=== PATIENT | female | born 1985 | race Two or more races ===

== ENCOUNTER 2025-03-31 00:02 | Emergency (ER) | payer MEDICAID, SELFPAY ==
[2025-03-31 00:03] VITALS: BP 109/52; PULSE 55; RESP 15; TEMP 36.6; O2SAT 93
[2025-03-31 00:04] VITALS: PULSE 51; O2SAT 99; BMI 29.7
--- NOTE | 2025-03-31 00:10 | EDNOTE_ITS ---
ED Chest Pain RME/HPI General Chief Complaint: Chest Pain Stated Complaint: CHEST PAIN Time Seen by Provider: 03/31/25 00:26 Arrival date/time: 03/31/25 00:02 RME / HPI RME / HPI narrative: This section includes all my notes and documentations, including HPI, PE, and ED course. Bala Estrada MD HPI: 39yo female with no significant past medical history BIBA here with multiple concerns, difficult to pinpoint. Including headache and dizziness chest pain and abdominal pain and shortness of breath weakness and nausea and diaphoresis. When asked the main problem she wants help with, she reports chest pain. No fever. EMS noted heart rate in 50s and SBP < 100. No speech or visual impairment. No asymmetrical loss of power in the arms or legs. No numbness or tingling. No other complaints. ROS: All negative except as documented in HPI. Physical Exam: General:? Alert and oriented.? Appears severely anxious. Eyes:? Conjunctivae and lids clear.? EOMI.? PERRL. ENT:? No nasal congestion.? Neck:? Supple.? No carotid bruit.? No JVD.?? Heart:? RRR.? Lungs:? No respiratory distress.? Good air movement with rales.?? Chest:? No tenderness. Abdomen:? Soft with epigastric tenderness.? Normal bowel sounds.? No distension.? No rebound or guarding.?? Back:? No CVA tenderness.?? Legs:? No clubbing, cyanosis, edema.? Skin:? Warm and dry.?? Neuro:? Alert and oriented X 3.? Cranial Nerves II-XII grossly intact.? No peripheral motor deficits. I reviewed EMS notes. I reviewed all diagnostic test results. My interpretation of the EKG is NSR with nonspecific ST-T changes. My interpretation of the chest x-ray is infiltrates. My review of the US gallbladder report is NAD. My review of the CT head report is unremarkable. My review of the CT chest abdomen pelvis is infiltrates in bilateral lungs. Blood and urine tests remarkable for WBC 16.4, Lactic Acid 2.8, and negative troponin/D-dimer/BNP. At this point, diagnoses include pneumonia. Treatment here included Azithromycin, Rocephin, Aspirin, NS, Toradol, Morphine, and Zofran. Significant improvement noted. Recommend outpatient management. Based on my best medical judgment, made decision no further evaluation or treatment indicated at this time. Patient understands and agrees to the discharge instructions customized and printed, see below. Discharge instructions from Dr. Estrada: --After extensive evaluation, there is no life-threatening condition.? Such as stroke or brain tumor or heart attack or pulmonary embolism (blood clots in your lungs) or pneumothorax (collapsed lung). --You have pneumonia. --No physical exertion for 3 days to help rest the lungs. ?No smoking or exposure to smoking or pets or dust or cold or humidity. --Zithromax and cefdinir to kill the germs causing the pneumonia. --Albuterol 2 puffs every 4-6 hours as needed for cough or shortness of breath. --Tylenol with codeine for severe pain or severe cough. --See a private doctor 04/02/2025 for recheck and further care. Ask to review all test results and official radiology reports, to make sure you receive all necessary follow-ups and monitoring. Ask for help until you are completely better. To make sure there is no serious underlying heart condition, ask to help you get more tests for your heart that cannot be done here in the ER. Such as Holter Monitor (cardiac monitoring at home from a day to even a month), heart stress test (on treadmill or with medication), echocardiogram (imaging of your heart structures), heart catherization (checking for blockages in your heart arteries), and a referral to see a Marriage Therapist. --Seek immediate medical care with worsening or with any concerns. Bala Estrada MD Related Data Home Medications ?Medication ?Instructions ?Recorded ?Confirmed omeprazole 20 mg capsule,delayed 20 mg PO QDAY 8 08/26/18 release Previous Rx's ?Medication ?Instructions ?Recorded hydrocodone 5 mg-acetaminophen 325 2 tab PO Q8HR PRN p ain #10 tabs 08/26/18 mg tablet ([place]) acetaminophen 300 mg-codeine 30 mg 2 tab PO Q8H PRN pa in #20 tabs 03/31/25 tablet albuterol sulfate 90 mcg/actuation 2 puff inhalation Q 6H PRN 03/31/25 aerosol inhaler shortness of breath or wheez ing #8.5 grams azithromycin 500 mg tablet 500 mg PO QDAY 3 days #3 ta bs 03/31/25 (Zithromax TRI-FLAKITO) cefdinir 300 mg capsule 300 mg PO BID #14 caps 03/31 Allergies Allergy/AdvReac Type Severity Reaction Status Date / Time shrimp Allergy Intermediate Hives Verified 03/31/25 00:32 Review of Systems Review of Systems Systems Reviewed: All systems reviewed, normal except as documented Past Medical History Past Medical History NEUROLOGIC: Negative Neurological Disorders or Seizures CARDIAC: Negative Cardiac Disorders or Congestive Heart Failure RESPIRATORY: Negative Chronic Obstructive Pulmonary Disease (COPD) or Asthma GASTROINTESTINAL: Positive Gall Bladder Disease; Negative Gastrointestinal Disorders GENITOURINARY: Negative Genitourinary Disorders or Renal Disease REPRODUCTIVE: Positive Previous Pregnancies MUSCULOSKELETAL: Negative Musculoskeletal Disorders ENDOCRINE: Negative Endocrine Disorders, Diabetes Mellitus Type 1 or Diabetes Mellitus Type 2 HEMATOLOGIC: Negative Blood Disorders or Sickle Cell Disease OTHER HISTORY: Positive Hospitalization (childbirth); Negative Autoimmune Disease, Blood Transfusions, Blood Transfusion Reaction or Anesthesia Reactions Family History FAMILY HISTORY: Positive Family Cancer (Aunts-breast cancer); Negative Family Psychiatric Problems, Family Respiratory Disorders, Family Cardiac Disorders (father-HTN), Family Gastrointestinal Problems, Family Surgery or Family Anesthesia Reaction Surgical History SURGICAL: Positive Section Social History SMOKING STATUS: Never smoker SECOND HAND EXPOSURE: No ED Exam Narrative Physical exam: As noted in HPI. Course Course Course Narrative: CXR is ordered for determining the etiology of chest pain. Quality Measures none Orders Category Date Time Status Bedside COVID-19 Antigen Test NOW Care 03/31/25 00:11 Completed Bedside Influenza A&B Antigen Test NOW Care 03/31/25 00:[address] Screening NOW Care 03/31/25 00:14 Completed EKG (ED ONLY) *Do not use* NOW Care 03/31/25 00:14 Completed Saline [Insert IV] NOW Care 03/31/25 00:11 Completed Straight [In and Out Catheter] X1 Care 03/31/25 00:[address] chest abdomen pelvis wo Stat Exams 03/31/25 01:[address] head/brain wo con Stat Exams 03/31/25 00:14 Taken EKG (ED Only) Stat Exams 03/31/25 00:14 Ordered US gall bladder Stat Exams 03/31/25 00:14 Taken XR chest 1V portable Stat Exams 03/31/25 00:14 Taken Alcohol, Blood Medical Stat Lab 03/31/25 00:25 Completed Amylase Stat Lab 03/31/25 00:25 Completed BNP [B-Type Natriuretic Peptide] Stat Lab 03/31/25 00:25 Completed Beta Hydroxybutyrate Stat Lab 03/31/25 00:25 Completed Bilirubin,Direct Stat Lab 03/31/25 00:25 Completed Blood Culture (Lab) Stat Lab 03/31/25 00:20 Received CBC Stat Lab 03/31/25 00:25 Completed CK [Creatine Kinase] Stat Lab 03/31/25 00:25 Completed CMP [Comprehensive Metabolic Panel] Stat Lab 03/31/25 00:25 Completed CRP [C-Reactive Protein] Stat Lab 03/31/25 00:25 Completed D-Dimer Stat Lab 03/31/25 00:25 Completed Drug Screen,Urine Stat Lab 03/31/25 00:25 Completed ESR [Sed Rate (ESR)] Stat Lab 03/31/25 00:25 Completed Free T4 (Free Thyroxine) Stat Lab 03/31/25 00:25 Completed HCG Qualitative,Urine Stat Lab 03/31/25 00:25 Completed HCG,Qualitative Serum Stat Lab 03/31/25 00:25 Completed Lactate (Lactic Acid) Stat Lab 03/31/25 00:25 Completed Lactic Acid, 3 HR Stat Lab 03/31/25 03:40 Completed Lipase Stat Lab 03/31/25 00:25 Completed Magnesium Stat Lab 03/31/25 00:25 Completed PT [Prothrombin Time with INR] Stat Lab 03/31/25 00:25 Completed PTT [Partial Thromboplastin Time] Stat Lab 03/31/25 00:25 Completed Path Review Blood Smear Stat Lab 03/31/25 00:25 Completed Procalcitonin Stat Lab 03/31/25 00:25 Completed TSH [Thyroid Stimulating Hormone] Stat Lab 03/31/25 00:25 Completed Troponin I Stat Lab 03/31/25 00:25 Completed UA, C/S IF [Urinalysis, C/S if Indicated] Stat Lab 03/31/25 00:25 Completed VBG [Venous Blood Gas] Stat Lab 03/31/25 00:25 Completed Aspirin Chew Med 03/31/25 00:11 Discontinued 324 mg PO X1 ONE Azithromycin Po [Zithromax PO] Med 03/31/25 03:02 Discontinued 500 mg PO X1 ONE Ketorolac Inj [Toradol Inj] Med 03/31/25 00:11 Discontinued 30 mg IVP X1 ONE Morphine Inj Med 03/31/25 00:11 Discontinued 4 mg IVP X1 ONE Ondansetron Inj [Zofran Inj] Med 03/31/25 00:11 Discontinued 4 mg IVP X1 ONE Sodium Chloride 0.9% 1000 ml [Ns] 1,000 ml Med 03/31/25 00:11 Discontinued IV 999 mls/hr cefTRIAXone/D5w 1gm IV premix [Rocephin/D5w 1gm IV Med 03/31/25 03:02 Discontinued premix] 1 gm in 50 ml IV X1 Vital Signs Vital signs: Vital Signs Temperature 97.9 F 03/31/25 00:03 Pulse Rate 55 L 03/31/25 00:03 Respiratory Rate 15 03/31/25 00:03 Blood Pressure 109/52 L 03/31/25 00:03 Pulse Oximetry (%) 93 L 03/31/25 00:03 Oxygen Delivery Method Room Air 03/31/25 00:03 Chest Pain MDM Narrative MDM Narrative:: Scribe Attestation: 03/31/25 - I, Ayse Hinton am scribing for and in the presence of Dr. Estrada. 39yo female with no significant past medical history BIBA from home presents to the ED for a chief complaint of chest pain x this afternoon. Per EMS, patient started having chest pain, shortness of breath, generalized weakness, and dizziness around 1400, reporting she took Aspirin at 1800 without relief. Patient's symptoms persisted, so she called 911 to come in for evaluation. EMS noted the patient to be bradycardic in the 50s with a blood pressure of 80/36. Patient reports associated epigastric discomfort, but denies any fever, chills, cough or any other associated symptoms. No other complaints reported. Patient data External records reviewed:: [facility] previous records (Per chart review, patient was seen here on 08/26/18 for cholecystitis.) Clinical information provided by:: patient and EMS Social determinants that could affect healthcare access:: none Patient has the following chronic illnesses:: none How is presenting disease/condition affected by chronic disease/condition?: no chronic disease Evaluation data The following diagnostics were reviewed and interpreted by me:: lab results, radiology exam(s) and EKG tracing(s) (My interpretation of the EKG is: Sinus rhythm (53 bpm) with nonspecific ST-T changes. Bala Estrada MD) Lab and/or radiology exams considered but not ordered:: none Interpretation Summary: I reviewed all diagnostic test results. My interpretation of the EKG is NSR with nonspecific ST-T changes. My interpretation of the chest x-ray is infiltrates. My review of the US gallbladder report is NAD. My review of the CT head report is unremarkable. My review of the CT chest abdomen pelvis is infiltrates in bilateral lungs. Blood and urine tests remarkable for WBC 16.4, Lactic Acid 2.8, and negative troponin/D-dimer/BNP. Medications / Prescriptions Medications or Prescriptions considered but not ordered:: none Medication administrations:: Medication Administration History Discontinued Medications Aspirin (Aspirin 81 Mg Chew) 324 mg PO X1 ONE Stop: 03/31/25 00:12 Last Admin: 03/31/25 00:43 Dose: 324 mg Documented By: JESSE Azithromycin (Azithromycin 250 Mg Tablet) 500 mg PO X1 ONE Stop: 03/31/25 03:03 Last Admin: 03/31/25 03:24 Dose: 500 mg Documented By: JOSH Sodium Chloride (Ns) 1,000 mls @ 999 mls/hr IV .Q1H1M ONE Stop: 03/31/25 01:11 Last Infusion: 03/31/25 03:17 Dose: Infused Documented By: Admin: 03/31/25 00:44 Dose: 999 mls/hr Documented By: JESSE Ceftriaxone Sodium/Dextrose (Rocephin/D5w 1gm Iv Premix) 1 gm in 50 mls @ 100 mls/hr IV X1 ONE Stop: 03/31/25 03:31 Last Admin: 03/31/25 03:25 Dose: 100 mls/hr Documented By: JOSH Ketorolac Tromethamine (Ketorolac Inj 30 Mg/Ml Vial) 30 mg IVP X1 ONE Stop: 03/31/25 00:12 Last Admin: 03/31/25 02:27 Dose: 30 mg Documented By: JESSE Morphine Sulfate (Morphine Sulf Inj 10 Mg/Ml Vial) 4 mg IVP X1 ONE Stop: 03/31/25 00:12 Last Admin: 03/31/25 00:43 Dose: 4 mg Documented By: JESSE Ondansetron HCl (Ondansetron Inj 2 Mg/Ml Inj 2 Ml) 4 mg IVP X1 ONE; Protocol Stop: 03/31/25 00:12 Last Admin: 03/31/25 00:44 Dose: 4 mg Documented By: EE Azithromycin, Rocephin, Aspirin, NS, Toradol, Morphine, Zofran Consultations Consultation(s) initiated? (list below): No Diagnosis Chest Pain Differential Diagnosis: fracture of rib, pneumothorax, stable angina, unstable angina pectoris, atypical chest pain, st elevation myocardial infarction, costochondritis, chest pain, biliary colic and other (CVA, brain tumor, COPD, CHF, pneumonia, GERD, gastritis, PUD, psychogenic) Most likely diagnosis given after review of the tests above:: Pneumonia Admission Indicated Admission indicated?: not indicated Explain why admission is indicated or not indicated:: With significant improvement, there was no indication for admission. Admission Request Was there a request for admission?: No Disposition Plan Disposition Plan: Discharge Discharge Attestation Discharge Attestation: The patient and all family members were given an opportunity to ask questions and understood the discharge instructions. Discharge instructions specifically effects, indications for sooner follow up or return to the emergency department, and the expected course of current diagnosis. Patient condition: Stable Discharge Plan Plan Patient Disposition: HOME (Self Care) Prescriptions/Referrals Prescriptions/Med Rec: New acetaminophen-codeine 300-30 mg tablet 2 tab PO Q8H MDD 6 PRN (Reason: pain) Qty: 20 0RF albuterol sulfate 90 mcg/actuation HFA aerosol inhaler 2 puff inhalation Q6H PRN (Reason: shortness of breath or wheezing) Qty: 8.5 0RF cefdinir 300 mg capsule 300 mg PO BID Qty: 14 0RF azithromycin [Zithromax TRI-FLAKITO] 500 mg tablet 500 mg PO QDAY 3 Days Qty: 3 0RF No Action omeprazole 20 mg Capsule,Delayed Release(Dr/Ec) 20 mg PO QDAY hydrocodone-acetaminophen [[place]] 5-325 mg tablet 2 tab PO Q8HR MDD 6 PRN (Reason: pain) Qty: 10 0RF Referrals: No Primary/Family,Physician [Primary Care Provider] - In 1 week Problem List Clinical Impression: Pneumonia Patient/Caregiver Discharge Instructions Discharge Activity: activity as tolerated Education Materials: ED Pneumonia (Adult) Additional Instructions: Discharge instructions from Dr. Estrada: --After extensive evaluation, there is no life-threatening condition.? Such as stroke or brain tumor or heart attack or pulmonary embolism (blood clots in your lungs) or pneumothorax (collapsed lung). --You have pneumonia. --No physical exertion for 3 days to help rest the lungs. ?No smoking or exposure to smoking or pets or dust or cold or humidity. --Zithromax and cefdinir to kill the germs causing the pneumonia. --Albuterol 2 puffs every 4-6 hours as needed for cough or shortness of breath. --Tylenol with codeine for severe pain or severe cough. --See a private doctor 04/02/2025 for recheck and further care. Ask to review all test results and official radiology reports, to make sure you receive all necessary follow-ups and monitoring. Ask for help until you are completely better. To make sure there is no serious underlying heart condition, ask to help you get more tests for your heart that cannot be done here in the ER. Such as Holter Monitor (cardiac monitoring at home from a day to even a month), heart stress test (on treadmill or with medication), echocardiogram (imaging of your heart structures), heart catherization (checking for blockages in your heart arteries), and a referral to see a Marriage Therapist. --Seek immediate medical care with worsening or with any concerns. Instrucciones de collins del Dr. Estrada: --Tras wayoln evaluaci?n exhaustiva, no se observa ninguna afecci?n potencialmente mortal, cleo un derrame cerebral, un tumor cerebral, un ataque card?aco, waylon embolia pulmonar (co?gulos de sascha en los pulmones) o un neumot?rax (colapso pulmonar). --Tiene neumon?a. --No realice meghan?n esfuerzo f?sico adeola 3 d?as para ayudar a los pulmones a descansar. --No fume ni se exponga al humo, a las mascotas, al polvo, al fr?o ni a la humedad. --Zithromax y cefdinir para eliminar los g?rmenes que causan la neumon?a. --Albuterol: 2 inhalaciones cada 4-6 horas seg?n sea necesario para la tos o la dificultad para respirar. --Tylenol con code?na para el dolor intenso o la tos intensa. --Consulte con un m?dico particular el 02/04/2025 para waylon nueva evaluaci?n y atenci?n adicional. --Solicite la revisi?n de todos los resultados de las pruebas y los informes radiol?gicos oficiales para asegurarse de recibir todos los seguimientos y la monitorizaci?n necesarios. --Solicite ayuda hasta que se recupere por completo. Para asegurarse de que no haya waylon afecci?n card?tawny subyacente grave, solicite ayuda para realizar m?s pruebas card?acas que no se pueden realizar en urgencias. Por ejemplo, un Holter (monitoreo card?aco en casa desde un d?a hasta un mes), waylon prueba de esfuerzo (en cinta caminadora o con medicaci?n), un ecocardiograma (im?genes de las estructuras card?acas), un cateterismo card?aco (para detectar obstrucciones en las arterias card?acas) y waylon derivaci?n a un cardi?logo. --Busque atenci?n m?dica inmediata si presenta empeoramiento o si tiene alguna inquietud. Print Language: Yoruba Stand Alone Forms: [employer] Award Info., Patient Portal Info Letter
--- NOTE | 2025-03-31 00:14 | XR_ITS ---
Examination: CT brain head without contrast. 2-D sagittal coronal reconstructions Date and time of exam:March 31, 2025 0156 hours COMPARISON: March 14, 2015 INDICATIONS: Dizziness episodes today CTDI: vol (mGy):49.9 DLP: (mGycm):960 Technique: Multiple CT axial sections of the brain have been obtained, 5 mm slice thickness. Contrast has not been administered. 2-D sagittal, coronal reconstructions have been obtained Low dose protocols were performed. One or more of the following dose reduction techniques were used; automated exposure control, adjustment of the mA and/or KV according to patient size, use of iterative reconstruction technique. Findings: No significant ventricular enlargement. Intra-axial or extra-axial hemorrhage density is not seen. No mass effect or midline shift Basal cisterns are not remarkable. Fourth ventricle is midline. Cranial vault intact. Impression: Negative for acute hemorrhage, mass effect or midline shift
--- NOTE | 2025-03-31 00:14 | XR_ITS ---
Examination: Abdomen sonogram, Limited Date and time of exam: March 31, 2025 0021 hours INDICATIONS: Abdominal pain and tenderness today Technique: Real-time carl scale transabdominal sonographic images of the upper abdomen obtained. Findings: Absent gallbladder Normal common bile duct 0.5 cm Pancreatic head 2.7 cm Liver 16.6 cm fatty infiltration Normal hepatopedal portal venous flow Patent IVC IMPRESSION: Absent gallbladder Normal common bile duct Fatty liver
--- NOTE | 2025-03-31 00:14 | XR_ITS ---
Examination: AP chest single view Technique one AP portable upright chest single view Date and time: March 31, 2025 0037 hours INDICATIONS: Chest pain shortness of breath today. FINDINGS: Suspicious for early bibasilar pneumonia. Normal heart size Mild osteopenia IMPRESSION: Suspicious for early bibasilar pneumonia
[2025-03-31 00:37] LABS: Base Excess, Venous -1 (-3-3); Lactate (Lactic Acid) 2.8 mMol/L (0.4-2.0); O2 Saturation, Venous 92 % (96-97); PCO2, Venous 31 mmHg (36-56); PO2, Venous 62 mmHg (15-58); pH, Venous 7.46 (7.33-7.66)
[2025-03-31 00:38] LABS: Collection Type, Urine Clean Catch; RBC,Urine 0 /hpf (0-3)
[2025-03-31 00:39] LABS: Basophils # (Auto) 0.1 Thou/mm3 (0.0-0.2); Basophils % (Auto) 1 % (0-2.5); Eosinophils # (Auto) 0.3 Thou/mm3 (0.0-0.5); Eosinophils % (Auto) 2 % (0-10); Hematocrit 39.6 % (36.0-46.0); Hemoglobin 13.9 g/dL (12.0-16.0); Immature Granulocytes % (Auto) 0 % (0-0); Immature Granulocytes Auto 0.06 Thou/mm3 (0.00-0.00); Lymphocytes # (Auto) 6.7 Thou/mm3 (1.0-4.8); Lymphocytes % (Auto) 41 % (10-50); Mean Corpuscular HGB Conc 35.1 g/dl (31.0-37.0); Mean Corpuscular Hemoglobin 30.5 pg (25.0-35.0); Mean Corpuscular Volume 87 fL (80-100); Monocytes # (Auto) 1.6 Thou/mm3 (0.0-0.8); Monocytes % (Auto) 10 % (0-12); Neutrophils # (Auto) 7.7 Thou/mm3 (1.8-7.7); Neutrophils % (Auto) 47 % (37-80); Nucleated Red Blood Cell % 0 /100 WBC (0); Platelet Count 386 Thou/mm3 (140-440); RDW Standard Deviation 43.3 fL (36.4-46.3); Red Blood Count 4.55 Miln/mm3 (4.00-5.20); White Blood Count 16.4 Thou/mm3 (3.6-11.0)
[2025-03-31 00:41] LABS: Beta Hydroxybutyrate 0.1 mmol/L (<0.6)
[2025-03-31] MEDS: ASPIRIN 81 MG CHEW 324 MG PO (00:43)
[2025-03-31] MEDS: MORPHINE SULF INJ 10 MG/ML VIAL 4 MG IVP (00:43)
[2025-03-31] MEDS: ONDANSETRON INJ 2 MG/ML INJ 2 ML 4 MG IVP (00:44)
[2025-03-31] MEDS: SODIUM CHLORIDE 0.9% 1000 ML 1,000 ML 999 ML IV (00:44)
[2025-03-31 00:46] LABS: Bilirubin,Urine Negative (Negative); Blood,Urine Negative (Negative); Clarity,Urine Clear (Clear/Hazy); Color,Urine Lt-Yellow (Lt Yel-Yel); Culture Indicated,Urine Not Indicated; Glucose, Urine Negative (Negative); Hyaline Casts,Urine < 1 /hpf (0-1); Ketones,Urine Negative (Negative); Leukocyte Esterase,Urine Negative (Negative); Nitrite,Urine Negative (Negative); PH,Urine 6.5 (5.0-7.0); Protein,Urine 1+ (Neg - Trace); Specific Gravity,Urine 1.008 (1.001-1.035); Squamous Epithelial Cell,Urine < 1 /hpf (0-5); Urobilinogen,Urine Negative mg/dL (0.0-1.0); WBC,Urine 1 /hpf (0-5)
[2025-03-31 00:48] LABS: HCG Qualitative,Urine Negative; Sed Rate (ESR) 16 mm/hr (0-20)
[2025-03-31 00:49] LABS: HCG,Qualitative Serum Negative
[2025-03-31 00:55] LABS: Amphetamine/Methamp Scrn,U Negative (Negative); Barbiturate Screen,Urine Negative (Negative); Benzodiazepines Screen,Urine Negative (Negative); Benzoylecgonine Screen, Ur Negative (Negative); Fentanyl Screen,Urine Negative (Negative); Opiate Screen,Urine Negative (Negative); THC Screen,Urine Negative (Negative)
[2025-03-31 00:56] LABS: D-Dimer < 250 ng/mL (<600)
[2025-03-31 01:04] LABS: INR 0.9 (0.9-1.3); Partial Thromboplastin Time 23.3 Seconds (22.0-36.0); Prothrombin Time 10.2 Seconds (9.0-12.2)
--- NOTE | 2025-03-31 01:04 | XR_ITS ---
Examination: CT chest, without intravenous contrast. CT abdomen, without intravenous contrast. CT pelvis, without intravenous contrast. 2-D sagittal and coronal reconstructions. 3-D reconstructions. Date and time of exam:March 31, 2025 0158 hours INDICATIONS: Chest pain abdominal pain today COMPARISON: CT abdomen pelvis August 11, 2018 CTDI vol (mgy) 9.20 DLP (MGycm)650 Technique: Multiple CT images, 3.0 mm slice thickness, obtained chest, abdomen, pelvis, with the high-resolution 64 slice scanner.. Sagittal and coronal 2-D reconstructions are obtained. 3-D reconstructions Low dose protocols were performed. One or more of the following dose reduction techniques were used; automated exposure control, adjustment of the mA and/or KV according to patient size, use of iterative reconstruction technique. Findings: No thoracic aortic aneurysm dilatation. Pulmonary artery segments are not enlarged. Bilateral pneumonia most prominent at the lung bases No liver or splenic lesion Absent gallbladder Normal pancreas. No renal or ureteral calculi, no hydronephrosis Aorta normal size No bowel obstruction Normal appendix Urinary bladder intact Possible right ovarian cyst IMPRESSION: Bilateral pneumonia, most prominent at the lung bases Recommend pelvic sonography to exclude 3 cm right ovarian cyst
[2025-03-31 01:05] LABS: B-Type Natriuretic Peptide < 20 pg/mL (0-100)
[2025-03-31 01:08] LABS: Alanine Aminotransferase 16 U/L (10-49); Albumin, Serum 4.6 gm/dL (3.5-5.0); Alcohol, Blood Medical < 3.0 mg/dL (0-10.0); Alkaline Phosphatase 63 U/L (46-116); Amylase 56 U/L (30-118); Anion Gap 11 (7-16); Aspartate Amino Transferase 16 U/L (0-34); BUN/Creatinine Ratio 8 Ratio (12-20); Bilirubin,Direct < 0.1 mg/dL (0.0-0.3); Bilirubin,Total 0.4 mg/dL (0.3-1.2); Blood Urea Nitrogen 10 mg/dL (9-23); C-Reactive Protein < 0.5 mg/dL (0.0-0.9); Calcium 9.5 mg/dL (8.3-10.6); Calcium (Corrected) 9.5 mg/dL (8.5-10.1); Carbon Dioxide 20.5 mMol/L (20.0-31.0); Chloride 110 mMol/L (98-107); Creatine Kinase 136 U/L (34-171); Creatinine (Component) 1.2 mg/dL (0.6-1.3); Estimated Creatinine Clearance 72.4 mL/min (>60); Globulin 2.3 gm/dL (2.3-3.5); Glucose 143 mg/dL (74-106); Lipase 46 U/L (12-53); Magnesium 2.1 mg/dL (1.6-2.6); Osmolality,Calculated 282 (275-295); Potassium 3.5 mMol/L (3.4-5.1); Procalcitonin < 0.04 ng/ml (0.0-0.49); Sodium 141 mMol/L (136-145); Thyroid Stimulating Hormone 6.44 uIU/mL (0.55-4.78); Total Protein 6.9 gm/dL (5.7-8.2); Troponin I < 0.002 ng/mL (0.0-0.045); eGFR 60 See Note
[2025-03-31 01:55] LABS: Path Review Blood Smear Sent to Pathologist
--- NOTE | 2025-03-31 02:01 | PRELIM_ITS ---
Right upper quadrant abdominal ultrasound with Limited Doppler. March 31, 2025 at 0021 hours Clinical history: RUQ tenderness. No prior study is available for comparison. Findings: The liver is mildly enlarged measuring 16.6 cm and demonstrates increased echogenicity. No intrahepatic biliary ductal dilatation. The main portal vein is patent and demonstrates hepatopetal flow. The hepatic veins are patent. The gallbladder is surgically absent. The common bile duct is normal in caliber at 4.6 mm. The pancreas is unremarkable to the extent visualized. The visualized inferior vena cava is patent. Impression: Post cholecystectomy. No biliary ductal dilatation Mild hepatomegaly with fatty infiltration of the liver. Report Electronically Signed By: Ceasra Moreno 03/31/2025 2:00:33 AM [EST]
[2025-03-31 02:19] VITALS: BP 110/52; PULSE 61; RESP 18; O2SAT 100
[2025-03-31] MEDS: KETOROLAC INJ 30 MG/ML VIAL IVP (02:27)
--- NOTE | 2025-03-31 02:51 | PRELIM_ITS ---
CT scan of the head without intravenous contrast (axial sections with sagittal and coronal reformats). March 31, 2025 0156 hours Clinical History: Dizziness No prior study is available for comparison. Findings: No evidence of intracranial hemorrhage, mass effect or midline shift. The ventricles and CSF spaces are unremarkable. The calvarium is unremarkable. The mastoid air cells and the visualized paranasal sinuses are clear. Impression: No evidence of intracranial hemorrhage, mass effect or midline shift. Report Electronically Signed By: Ceasar Moreno 03/31/2025 2:50:21 AM [EST]
--- NOTE | 2025-03-31 02:58 | PRELIM_ITS ---
CT scan of the chest, abdomen and pelvis without intravenous contrast (axial sections with sagittal and coronal reformats) March 31, 2025 0158 hours Clinical History: CP ABD PAIN No prior study is available for comparison. Findings: There is mild heterogeneous attenuation of the lower lungs, suggestive of small airways disease. Subsegmental atelectasis/infiltrates in the bilateral lower lobes and right middle lobe. There is no pleural effusion or pneumothorax. The aorta is unremarkable on this noncontrast study. No evidence of mediastinal mass or lymphadenopathy. There is no pericardial effusion. The gallbladder is surgically absent. The liver, spleen, pancreas, adrenals and kidneys are unremarkable on this noncontrast study. No evidence of bowel dilatation. There are multiple colonic diverticula without evidence of diverticulitis. The appendix is within normal limits. The urinary bladder is unremarkable. There is a right ovarian cystic lesion, measuring 3.5 cm.There is no free fluid or free air. The osseous structures are unremarkable. Impression: Subsegmental atelectasis/infiltrates in the bilateral lower lobes and right middle lobe. No evidence of acute intraabdominal or pelvic pathology on this noncontrast study. Mild heterogeneous attenuation of the lower lungs, suggestive of small airways disease. 3.5 cm right ovarian cystic lesion. Recommend further evaluation with sonography, if clinically indicated. Report Electronically Signed By: Ceasar Moreno 03/31/2025 2:57:47 AM [EST]
[2025-03-31 03:00] VITALS: BP 112/58; PULSE 66; RESP 18; O2SAT 100
[2025-03-31] MEDS: AZITHROMYCIN 250 MG TABLET 500 MG PO (03:24)
[2025-03-31] MEDS: cefTRIAXone/D5w 1gm IV premix 1 GM/50 ML BAG IV (03:25)
[2025-03-31 03:34] LABS: Reflex Lactate? Y
[2025-03-31 03:53] VITALS: BP 112/58; PULSE 68; RESP 15; O2SAT 100
== END 2025-03-31 04:02 | disposition home or self-care (01) ==
PROVIDERS: Emergency Provider Emergency Medicine
DX: J18.9 Pneumonia, unspecified organism (principal); K76.0 Fatty (change of) liver, not elsewhere classified; R42 Dizziness and giddiness; M85.88 Other specified disorders of bone density and structure, other site
CPT/HCPCS: 51701; 36415; 70450; 71045; 71250; 74176; 76705; 80053; 80307; 80320; 81001; 81025; 82010; 82150; 82248; 82550; 82803; 83605; 83690; 83735; 83880; 84145; 84439; 84443; 84484; 84703; 85025; 85379; 85610; 85652; 85730; 86140; 87040; 87400; 87811; 93005; 96361; 96374; 96375; 99284; J0696; J1885; J2270; J2405; J7030; A9270; G0480

== ENCOUNTER 2025-06-21 15:25 | Emergency (ER) | payer MEDICAID, SELFPAY ==
[2025-06-21 15:26] VITALS: BMI 30.6
--- NOTE | 2025-06-21 15:30 | EKG_ITS ---
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
[2025-06-21 15:46] VITALS: BP 127/84; PULSE 83; RESP 19; TEMP 36.6; O2SAT 100
--- NOTE | 2025-06-21 16:14 | XR_ITS ---
Examination: PA chest single view Technique: Upright PA chest single view Date and time: March 21, 2025, 1620 hrs., Comparison March 31, 2025 Indications: Chest pain dizziness today. Findings: Normal heart size. The lungs are clear. The osseous structures are intact Impression: No active disease.
--- NOTE | 2025-06-21 16:15 | PD.EDRME ---
Rapid Medical Screening Exam E Arrival date/time: 06/21/25 15:25 This is a 39-year-old female that comes in with complaints of chest pain to mid chest that started prior to arrival. Patient states that she was cleaning her house and symptoms started abruptly. Patient states she has had this pain before. Patient states that she actually has an appointment with a leaf coverer in a couple of weeks because her heart rate and her blood pressure drops sometimes for no reason. Patient denies any shortness of breath. Patient does have anxiety and does take medication for this to I did ask patient if this feels like anxiety and she says now. Patient states she also has dizziness. I have greeted and performed a focused initial assessment of this patient. Initial appropriate labs ordered at this time. A comprehensive ED assessment and evaluation of the patient and analysis of all test and completion of medical decision making process will be conducted by additional ED provider. Chief Complaint: Chest Pain Time Seen by Provider: 06/21/25 15:48 Vital signs: Vital Signs Temperature 97.8 F 06/21/25 15:46 Pulse Rate 83 06/21/25 15:46 Respiratory Rate 19 06/21/25 15:46 Blood Pressure 127/84 06/21/25 15:46 Pulse Oximetry (%) 100 06/21/25 15:46 Oxygen Delivery Method Room Air 06/21/25 15:46
[2025-06-21 16:46] LABS: Basophils # (Auto) 0.1 Thou/mm3 (0.0-0.2); Basophils % (Auto) 1 % (0-2.5); Eosinophils # (Auto) 0.2 Thou/mm3 (0.0-0.5); Eosinophils % (Auto) 1 % (0-10); Hematocrit 41.4 % (36.0-46.0); Hemoglobin 13.8 g/dL (12.0-16.0); Immature Granulocytes Auto 0.09 Thou/mm3 (0.00-0.00); Lymphocytes # (Auto) 3.8 Thou/mm3 (1.0-4.8); Lymphocytes % (Auto) 22 % (10-50); Mean Corpuscular HGB Conc 33.3 g/dl (31.0-37.0); Mean Corpuscular Hemoglobin 30.6 pg (25.0-35.0); Mean Corpuscular Volume 92 fL (80-100); Monocytes # (Auto) 1.4 Thou/mm3 (0.0-0.8); Monocytes % (Auto) 8 % (0-12); Neutrophils # (Auto) 11.5 Thou/mm3 (1.8-7.7); Neutrophils % (Auto) 67 % (37-80); Nucleated Red Blood Cell # 0.00 Thou/mm3 (0.00-0.00); Nucleated Red Blood Cell % 0 /100 WBC (0); Platelet Count 381 Thou/mm3 (140-440); RDW Standard Deviation 45.8 fL (36.4-46.3); Red Blood Count 4.51 Miln/mm3 (4.00-5.20); White Blood Count 17.1 Thou/mm3 (3.6-11.0)
[2025-06-21 17:02] LABS: Alanine Aminotransferase 18 U/L (10-49); Albumin, Serum 4.7 gm/dL (3.5-5.0); Albumin/Globulin Ratio 1.9 (1.2-2.2); Alkaline Phosphatase 61 U/L (46-116); Anion Gap 13 (7-16); Aspartate Amino Transferase 15 U/L (0-34); BUN/Creatinine Ratio 6 Ratio (12-20); Bilirubin,Total 0.3 mg/dL (0.3-1.2); Blood Urea Nitrogen 5 mg/dL (9-23); Calcium 10.3 mg/dL (8.3-10.6); Calcium (Corrected) 10.3 mg/dL (8.5-10.1); Carbon Dioxide 25.4 mMol/L (20.0-31.0); Chloride 104 mMol/L (98-107); Creatinine (Component) 0.8 mg/dL (0.6-1.3); Estimated Creatinine Clearance 107.9 mL/min (>60); Globulin 2.5 gm/dL (2.3-3.5); Glucose 94 mg/dL (74-106); Osmolality,Calculated 280 (275-295); Potassium 3.4 mMol/L (3.4-5.1); Sodium 142 mMol/L (136-145); Total Protein 7.2 gm/dL (5.7-8.2); Troponin I < 0.002 ng/mL (0.0-0.045); eGFR > 60 See Note
[2025-06-21 17:11] LABS: B-Type Natriuretic Peptide < 20 pg/mL (0-100)
[2025-06-21 18:16] VITALS: BP 132/82; PULSE 78; RESP 18; TEMP 37.2; O2SAT 98
--- NOTE | 2025-06-21 18:42 | PD.EDCHEST ---
ED Chest Pain RME/HPI General Chief Complaint: Chest Pain Stated Complaint: CHEST PRESSURE SINCE 1200 Time Seen by Provider: 06/21/25 15:48 Arrival date/time: 06/21/25 15:25 RME / HPI RME / HPI narrative: 06/21/25 15:25 This is a 39-year-old female that comes in with complaints of chest pain to mid chest that started prior to arrival. Patient states that she was cleaning her house and symptoms started abruptly. Patient states she has had this pain before. Patient states that she actually has an appointment with a fruit rancher in a couple of weeks because her heart rate and her blood pressure drops sometimes for no reason. Patient denies any shortness of breath. Patient does have anxiety and does take medication for this to I did ask patient if this feels like anxiety and she says now. Patient states she also has dizziness. I have greeted and performed a focused initial assessment of this patient. Initial appropriate labs ordered at this time. A comprehensive ED assessment and evaluation of the patient and analysis of all test and completion of medical decision making process will be conducted by additional ED provider. DR. KEANE MAIN ED EVALUATION: 39 y/o female with Hx of Anxiety presents to ED c/o centralized chest pain radiating to the back and shortness of breath s/p cleaning x approximately 7 hours ago. Patient has an upcoming fruit rancher appointment. Denies any recent injury or trauma. Related Data Home Medications ?Medication ?Instructions ?Recorded ?Confirmed omeprazole 20 mg capsule,delayed 20 mg PO QDAY 08/26/18 08/26/18 release Previous Rx's ?Medication ?Instructions ?Recorded hydrocodone 5 mg-acetaminophen 325 2 tab PO Q8HR PRN pain #10 tabs 08/26/18 mg tablet ([place]) acetaminophen 300 mg-codeine 30 mg 2 tab PO Q8H PRN pain #20 tabs 03/31/25 tablet albuterol sulfate 90 mcg/actuation 2 puff inhalation Q6H PRN 03/31/25 aerosol inhaler shortness of breath or wheezing #8.5 grams cefdinir 300 mg capsule 300 mg PO BID #14 caps 03/31/25 Allergies Allergy/AdvReac Type Severity Reaction Status Date / Time shrimp Allergy Severe Hives Verified 06/21/25 15:29 Review of Systems Review of Systems Systems Reviewed: All systems reviewed, normal except as documented Past Medical History Past Medical History GASTROINTESTINAL: Positive Gall Bladder Disease REPRODUCTIVE: Positive Previous Pregnancies PSYCHO/SOCIAL: Positive Anxiety OTHER HISTORY: Positive Hospitalization Family History FAMILY HISTORY: Positive Family Cancer Surgical History SURGICAL: Positive Section ED Exam Narrative Physical exam: Generally patient is alert oriented x 3 and in no obvious distress, heart regular rate and rhythm, lungs clear to auscultation equal bilaterally, chest shows right upper chest wall tenderness that reproduces the patient's pain. No crepitance or subcu air. No overlying rash. Abdomen soft bowel sounds present nondistended nontender, extremities show equal distal radial and ulnar pulses bilaterally. No peripheral edema. Neurologic exam Darlene Coma Scale of 15. No focal motor deficits. Course Course Course Narrative: CXR was ordered for determining the etiology of shortness of breath. Quality Measures none Orders Category Date Time Status EKG (ED ONLY) *Do not use* NOW Care 06/21/25 15:30 Completed EKG (ED Only) Stat Exams 06/21/25 15:30 Draft XR chest 2V Stat Exams 06/21/25 16:14 Completed BNP [B-Type Natriuretic Peptide] Stat Lab 06/21/25 16:34 Completed CBC Stat Lab 06/21/25 16:34 Completed Comprehensive Metabolic Panel Stat Lab 06/21/25 16:34 Completed Drug Screen,Urine Stat Lab 06/21/25 16:14 Ordered HCG Qualitative,Urine Stat Lab 06/21/25 16:14 Ordered Troponin I Stat Lab 06/21/25 16:34 Completed Urinalysis, C/S if Indicated Stat Lab 06/21/25 16:14 Ordered Vital Signs Vital signs: Vital Signs Temperature 97.8 F 06/21/25 15:46 Pulse Rate 83 06/21/25 15:46 Respiratory Rate 19 06/21/25 15:46 Blood Pressure 127/84 06/21/25 15:46 Pulse Oximetry (%) 100 06/21/25 15:46 Oxygen Delivery Method Room Air 06/21/25 15:46 Chest Pain MDM Narrative MDM Narrative:: Scribe Attestation: Blossom Ramirez am scribing for and in the presence of Dr. Keane. Provider Notation: Although this document has been carefully reviewed, there may still be some phonetic and other typographical errors. These errors are purely grammatical due to imperfections in the software program and should not be construed in any way to compromise the substance of the patient's medical care during this visit. Differential diagnosis: Acute coronary syndrome, musculoskeletal chest wall pain, noncardiac chest pain I interpreted all labs. Troponin drawn greater than 3 hours from onset of chest pain was not elevated. Chest x-ray is normal. EKG shows normal sinus rhythm at a rate of 82 with an incomplete right bundle branch block. No ischemic changes. Heart score is 0. Patient has an appointment with a fruit rancher due to bradycardia in the past. She is to keep that appointment. Return to ER as needed or if condition worsens. Patient data External records reviewed:: [facility] previous records (Reviewed prior ED records from 03/31/25. Patient was seen for Pneumonia.) Clinical information provided by:: patient Social determinants that could affect healthcare access:: none Patient has the following chronic illnesses:: Anxiety How is presenting disease/condition affected by chronic disease/condition?: exacerbated by Evaluation data The following diagnostics were reviewed and interpreted by me:: lab results, radiology exam(s) and EKG tracing(s) Lab and/or radiology exams considered but not ordered:: None Interpretation Summary: RADIOLOGY Chest X-Ray: Findings: Normal heart size. The lungs are clear. The osseous structures are intact Impression: No active disease. Medications / Prescriptions Medications or Prescriptions considered but not ordered:: None Medication administrations:: See above if any. Consultations Consultation(s) initiated? (list below): No Diagnosis Chest Pain Differential Diagnosis: fracture of rib, pneumothorax, stable angina, unstable angina pectoris, atypical chest pain, st elevation myocardial infarction, costochondritis, chest pain and biliary colic Most likely diagnosis given after review of the tests above:: None Admission Indicated Admission indicated?: not indicated Explain why admission is indicated or not indicated:: Patient does not meet admission criteria. Admission Request Was there a request for admission?: No Disposition Plan Disposition Plan: Discharge Discharge Attestation Discharge Attestation: The patient and all family members were given an opportunity to ask questions and understood the discharge instructions. Discharge instructions specifically effects, indications for sooner follow up or return to the emergency department, and the expected course of current diagnosis. Patient condition: Stable Discharge Plan Plan Patient Disposition: HOME (Self Care) Prescriptions/Referrals Prescriptions/Med Rec: No Action omeprazole 20 mg Capsule,Delayed Release(Dr/Ec) 20 mg PO QDAY hydrocodone-acetaminophen [[place]] 5-325 mg tablet 2 tab PO Q8HR MDD 6 PRN (Reason: pain) Qty: 10 0RF acetaminophen-codeine 300-30 mg tablet 2 tab PO Q8H MDD 6 PRN (Reason: pain) Qty: 20 0RF albuterol sulfate 90 mcg/actuation HFA aerosol inhaler 2 puff inhalation Q6H PRN (Reason: shortness of breath or wheezing) Qty: 8.5 0RF cefdinir 300 mg capsule 300 mg PO BID Qty: 14 0RF Referrals: Nicol Stoll FNP [Primary Care Provider] - In 1 week Problem List Clinical Impression: Chest pain Patient/Caregiver Discharge Instructions Education Materials: ED Chest Pain, Uncertain Cause Additional Instructions: Keep your follow-up appointments. You may take Tylenol and/or ibuprofen as needed for pain. Return to ER as needed or if condition worsens. Print Language: Yakut Stand Alone Forms: [facility] Award Info., Patient Portal Info Letter
== END 2025-06-21 19:04 | disposition home or self-care (01) ==
PROVIDERS: Nurse Practitioner Family; Emergency Provider Emergency Medicine; PCP Registered Nurse Community Health
DX: R07.89 Other chest pain (principal); R42 Dizziness and giddiness; R06.02 Shortness of breath; F41.9 Anxiety disorder, unspecified
CPT/HCPCS: 36415; 71046; 80053; 80307; 81001; 81025; 83880; 84484; 85025; 93005; 99283